=== PATIENT | female | born 1955 | race African-American/Black ===

== ENCOUNTER 2017-10-01 14:40 | Emergency (ER) | payer OTHER ==
[2017-10-01 17:42] VITALS: BP 140/93
--- NOTE | 2017-10-01 17:52 | UC ---
Ear Complaint HPI - HPI Summary HPI Summary: 61 y/o female presents to the urgent care c/o RT ear pain since last night. Pt states pain woke her up around 0430am. Now associated w/ mild KIDD, ear pressure, decrease hearing and mild ear discharge. Pain is 8/10 a w/ pressure around Rt cheek and behind ear. Pt denies ringing of ear, fever, dizziness, SOB, chest pain, abdominal pain, N/V/D - History of Current Complaint Chief Complaint: UCEar Stated Complaint: EAR PAIN Time Seen by Provider: 10/01/17 17:51 Hx Obtained From: Patient Hx Last Menstrual Period: post Onset/Duration: Gradual Onset, Lasting Days - 1 day, Still Present, Worse Since - this morning Severity Initially: Mild Severity Currently: Moderate Pain Intensity: 8 Pain Scale Used: 0-10 Numeric Aggravating Factors: Nothing Alleviating Factors: Nothing Associated Signs/Symptoms: Positive: Hearing Loss - Allergies/Home Medications Allergies/Adverse Reactions: Allergies Allergy/AdvReac Type Severity Reaction Status Date / Time No Known Allergies Allergy Verified 10/01/17 17:43 PMH/Surg Hx/FS Hx/Imm Hx Previously Healthy: Yes - Pt denies PMHX - Surgical History Surgical History: None - Family History Known Family History: Positive: Hypertension - Social History Occupation: Employed Full-time Lives: With Family Alcohol Use: None Substance Use Type: None Smoking Status (MU): Never Smoked Tobacco Review of Systems Constitutional: Negative Skin: Negative Eyes: Negative ENT: Ear Ache - RT ear pain, Other - RT ear w/ decrease hearing Respiratory: Negative Cardiovascular: Negative Gastrointestinal: Negative Genitourinary: Negative Motor: Negative Neurovascular: Negative Musculoskeletal: Negative Neurological: Negative Psychological: Negative Is Patient Immunocompromised?: No All Other Systems Reviewed And Are Negative: Yes Physical Exam Triage Information Reviewed: Yes Vital Signs: Initial Vital Signs Temp 99 F 10/01/17 17:37 Pulse 72 10/01/17 17:37 Resp 16 10/01/17 17:37 BP 140/93 10/01/17 17:37 Pulse Ox 100 10/01/17 17:37 - Additional Comments VITAL SIGNS: Reviewed. GENERAL: Patient is a well developed and nourished female who is sitting comfortable in the examining table. Patient is not in any acute respiratory distress. HEAD AND FACE: No signs of trauma. No ecchymosis, hematomas or skull depressions. No sinus tenderness. EYES: PERRLA, EOMI x 2, No injected conjunctiva, no nystagmus. No photophobia. EARS: Hearing grossly intact. Rt external ear canal w/ purulent yellowish discharge and erythema. Rt TM injected w/ erythema and purulent discharge. LF external ear canal clear and LF TM WNL.. MOUTH: Positive pharynx with mild erythema, no exudates, no palatal petechiae.NO B/L tonsillar enlargement with exudate. Uvula in midline. NECK: Supple, trachea is midline, Positive anterior cervical lymphadenopathy, no JVD, no carotid bruit, no c-spine tenderness, neck with full ROM. No meningeal signs, no Kernig's or brudzinskis signs. CHEST: Symmetric, no tenderness at palpation LUNGS: Clear to auscultation bilaterally. No wheezing or crackles. CVS: Regular rate and rhythm, S1 and S2 present, no murmurs or gallops appreciated. ABDOMEN: Soft, non-tender. No signs of distention. No rebound no guarding, and no masses palpated. Bowel sounds are normal. EXTREMITIES: FROM in all major joints, no edema, no cyanosis or clubbing. NEURO: Alert and oriented x 3. No acute neurological deficits. Speech is normal and follows commands. SKIN: Dry and warm Ear Complaint Course/Dx - Course Course Of Treatment: 61 y/o female presents to the urgent care c/o RT ear pain since last night. Pt states pain woke her up around 0430am. Now associated w/ mild KIDD, ear pressure, decrease hearing and mild ear discharge. Pain is 8/10 a w/ pressure around Rt cheek and behind ear. Pt denies ringing of ear, fever, dizziness, SOB, chest pain, abdominal pain, N/V/D. Hx obtained.Pt w/ justino RT otitis media and RT ottis externa. Pt Rx Amoxicillin PO, and Cortisporin otic drops. If symptoms do not improve or worsen to return to the urgent care or f/u with PCP for further management. Pt's BP is elevated today advised to decrease salt in diet, monitor BP and f/u with PCP for further management.Pt. understood and agreed with D/C intructions. - Differential Dx/Diagnosis Differential Diagnosis/HQI/PQRI: Otitis Externa, Otitis Media, Perforated TM, Pharyngitis, URI Provider Diagnoses: 1-RT acute otitis Media. 2-RT acute otitis Externa Discharge - Discharge Plan Condition: Stable Disposition: HOME Prescriptions: Amoxicillin PO (*) [Amoxicillin 875 MG (*)] 875 mg PO BID #19 tab Neomyc/Polym/HC 1% OTIC SUSP* [Cortisporin Otic Susp 1%*] 4 drop RIGHT EAR TID # 1 btl Patient Education Materials: Ear Infection (ED), Low-Sodium Diet (ED) Referrals: Nicko Mckinney MD [Primary Care Provider] - 3 Days Additional Instructions: 1- Please take the full course of the antibiotic to avoid resistance. 2-Please apply otic antibiotic on your Rt ear as directed. 3-If symptoms do not improve or worsen please return to the urgent care or f/u with your PCP for further evaluation and treatment. 4-Your BP is elevated today. please decrease salt in your diet, monitor BP and if it continues to be elevated please f/u with your PCP for further management
[2017-10-01] MEDS ORDERED: Amoxicillin PO (*) 500 MG CAP PO ONE (18:06)
== END 2017-10-01 18:33 | disposition home or self-care (01) ==
LOC: UCEAST 14:40
DX: H66.91 Otitis media, unspecified, right ear (principal); H60.501 Unspecified acute noninfective otitis externa, right ear; R51 Headache
CPT/HCPCS: 99212; A9270-GY; G0463

== ENCOUNTER 2019-03-24 14:08 | Emergency (ER) | payer OTHER ==
[2019-03-24 14:18] VITALS: BP 141/92
[2019-03-24] MEDS ORDERED: Ibuprofen TAB* 600 MG PO ONE (15:12)
--- NOTE | 2019-03-24 15:14 | UC ---
Throat Pain/Nasal Costa HPI - HPI Summary HPI Summary: Thurs. started w/ sore throat, swollen glands in neck and last night started w R eye crusting. She did fly on a plan earlier this week. but denies sick contacts. nothing makes it better/worse. - History of Current Complaint Chief Complaint: Alma Delia Stated Complaint: EYE/SORETHROAT Time Seen by Provider: 03/24/19 15:03 Hx Last Menstrual Period: post Pain Intensity: 7 Pain Scale Used: 0-10 Numeric - Allergies/Home Medications Allergies/Adverse Reactions: Allergies Allergy/AdvReac Type Severity Reaction Status Date / Time No Known Allergies Allergy Verified 03/24/19 15:25 PMH/Surg Hx/FS Hx/Imm Hx - Additional Past Medical History Additional PMH: no chronic conditions. Previously Healthy: Yes - Surgical History Surgical History: None - Family History Known Family History: Positive: Hypertension - Social History Alcohol Use: Occasionally Substance Use Type: None Smoking Status (MU): Never Smoked Tobacco Review of Systems All Other Systems Reviewed And Are Negative: Yes Constitutional: Negative: Fever Eyes: Positive: Drainage - r, Eye Redness - r. Negative: Blurred Vision, Photophobia ENT: Positive: Sore Throat, Other - loss of voice Respiratory: Positive: Negative Cardiovascular: Positive: Negative Neurological: Positive: Headache Physical Exam Triage Information Reviewed: Yes Completion Of Physical Exam Limited Due To: Extremis Vital Signs: Initial Vital Signs Temp 98 F 03/24/19 14:15 Pulse 93 03/24/19 14:15 Resp 16 03/24/19 14:15 BP 141/92 03/24/19 14:15 Pulse Ox 100 03/24/19 14:15 Vital Signs Reviewed: Yes ENT: Positive: Pharynx normal Throat Pain/Nasal Course/Dx - Course Course Of Treatment: Sore throat with laryngitis and rapid strep neg. assoc. w/ conjunctivitis in R eye. Although i suspect htis all to be of viral etiology will tx R eye w/ erythromycin as pt was requesting this. we disc viral vs. bacterial etiology. will send for throat cx. - Differential Dx/Diagnosis Differential Diagnosis/HQI/PQRI: Pharyngitis, URI Provider Diagnosis: Pharyngitis, Conjunctivitis Discharge - Sign-Out/Discharge Documenting (check all that apply): Patient Departure All imaging exams completed and their final reports reviewed: No Studies - Discharge Plan Condition: Good Disposition: HOME Prescriptions: Erythromycin OPTH OINT* [Erythromycin 0.5% OPTH OINT*] 1 applic LEFT EYE TID 7 Days #1 ophth.oint Erythromycin OPTH OINT* [Erythromycin 0.5% OPTH OINT*] 1 applic LEFT EYE TID 10 Days #1 ophth.oint Patient Education Materials: Conjunctivitis (ED) Referrals: Nicko Mckinney MD [Primary Care Provider] - Additional Instructions: if worsening please follow up with pcp - Billing Disposition and Condition Condition: GOOD Disposition: Home - Attestation Statements Provider Attestation: This patient was not seen by me. I was available to consult. MARK
--- OUTSIDE RECORDS SUMMARY | 2019-03-24 16:48 | XMS REPORT | Continuity of Care Document ---
:1955 External Reference #:[id number] Author Name Ember Villa O.D. Address [address] [place] [address] Care Team Providers Name Role Phone Nicko Mckinney M.D. Primary Care Physician Unavailable Payers Date Identification Numbers Payment Provider Subscriber Policy Number: [id number] [employer] Ppo/Pos/Epo/Nap Benjamín [employer] Number: [id number] [address] PayID: [id number] [place] [address] Problems Active Problems Provider Date Nuclear senile cataract Ember Villa O.D. Onset: 12/25/2015 Tear film insufficiency Ember Villa O.D. Onset: 02/15/2018 Combined form of senile cataract Ember Villa O.D. Onset: 02/15/2018 Retinal lattice degeneration Ember Villa O.D. 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 ETOH Use Consumes 2 glasses of wine per day Tobacco Use Start: Unknown Patient has never smoked Smoking Status Reviewed: 03/01/19 Patient has never smoked Allergies, Adverse Reactions, Alerts Description No Known Drug Allergies Medications Active Medications SIG Qnty Indications Ordering Provider Date Hair/Skin/Nails Unknown Tablets Vitamin D 1 Tab Daily Unknown (Cholecalciferol) 5000Units Capsules Omeprazole prn Unknown Capsules DR Chromium Picolinate daily Unknown 200mcg Capsules History Medications No Active Medications Unknown 12/25/2015 - 12/25/2015 No Active Medications Unknown 12/25/2014 - 12/25/2014 Doxycycline Hyclate 1 by mouth every day Unknown - 12/24/2014 100mg Capsules [place] Nighttime Unknown - 12/24/2015 [place] Weight Management Unknown - 12/24/2015 Capsules Procedures Date Code Description Status 02/15/2018 62187 Determination Of Refractive State Completed 02/15/2018 75827 Est Patient Comprehensive Exam Completed 12/26/2016 14001 Determination Of Refractive State Completed 12/26/2016 72245 Est Patient Comprehensive Exam Completed 12/25/2015 04124 Determination Of Refractive State Completed 12/25/2015 56106 Est Patient Comprehensive Exam Completed 12/25/2014 80498 Determination Of Refractive State Completed 12/25/2014 33481 Est Patient Comprehensive Exam Completed 12/24/2013 39791 Determination Of Refractive State Completed 12/24/2013 18174 Est Patient Comprehensive Exam Completed 12/18/2012 30278 Est Patient Intermediate Exam Completed 12/18/2012 603 Eyeglass/CL Case Completed 12/07/2011 51101 Est Patient Comprehensive Exam Completed 07/22/2010 55409 New Patient Comprehensive Exam Completed Encounters Type Date Location Provider Dx Diagnosis Office Visit 10/27/2010 Ric Hilton, 364.01 Iridocyclitis Primary 9:30a fouzia HARDWICK M.D. Office Visit 09/08/2010 Ric Hilton, 364.01 Iridocyclitis Primary 9:30a fouzia HARDWICK M.D. Office Visit 08/25/2010 Ric Hilton, 364.01 Iridocyclitis Primary 11:15a fouzia HARDWICK M.D. Office Visit 08/11/2010 Ric Hilton, 364.01 Iridocyclitis Primary 9:30a fouzia HARDWICK M.D. Office Visit 08/04/2010 Ric Hilton, 364.01 Iridocyclitis Primary 9:30a fouzia HARDWICK M.D. Office Visit 07/29/2010 Ric Hilton, 364.01 Iridocyclitis Primary 8:15a fouzia HARDWICK M.D. Office Visit 07/27/2010 Ric Hilton, 364.01 Iridocyclitis Primary 9:15a fouzia HARDWICK M.D. 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 Plan of Treatment 03/01/2019 - Ember Villa O.D.H25.813 Combined forms of age-related cataract, bilateralComments:You have been diagnosed with cataracts. If you are happy with your vision as it is now, then we willsee you at your next scheduled appointment. If you feel like your vision is getting worse before your scheduled appointment, please call R[facility]ana at [phone].Follow up:1 Year Follow Up You can expect to have your eyes dilated at your next visit. If Dr. Villa orders any additional testing, it may require extra time. We recommend that you bring sunglasses, as dilation drops often make you light sensitive until they wear off. We always recommend you bring someone to drive you home if you are uncomfortable driving with your eyes dilated. If you have any questions before your next visit, feel free to call our office at .H04.123 Dry eye syndrome of bilateral lacrimal glandsComments:continue to use artificial tears as needed for comfortuse hot compresses as needed for 5-10 [id number] Lattice degeneration of retina, right eye
== END 2019-03-24 15:36 | disposition home or self-care (01) ==
LOC: UCEAST 14:08
DX: J02.9 Acute pharyngitis, unspecified (principal); H10.9 Unspecified conjunctivitis
CPT/HCPCS: 87070; 87651; 99212; A9270-GY; G0463